=== PATIENT | female | born 1990 | race Caucasian/White ===

== ENCOUNTER 2024-08-14 10:12 | Outpatient (CLI) | payer BC ==
[2024-08-14 10:42] LABS: #Basophils 0.05 10x3/uL (0.0-0.2); #Eosinophils 0.58 10x3/uL (0.0-0.5); #Monocytes 0.76 10x3/uL (0.0-1.1); #Neutrophils 5.05 10x3/uL (1.5-8.4); %Basophils 0.5 % (0.0-2.0); %Eosinophils 6.3 % (0.0-6.0); %Monocytes 8.2 % (0.0-10.0); %Neutrophils 54.7 % (40.0-75.0); Hematocrit 36.1 % (34.9-44.5); Hemoglobin 11.1 g/dL (12.0-15.5); Mean Corpuscular HGB CONC 30.7 g/dL (32.0-36.0); Mean Corpuscular Hemoglobin 25.9 pg (27.0-33.0); Mean Corpuscular Volume 84.3 fL (81.6-98.3); Mean Platelet Volume 9.3 fL (7.4-10.4); Platelet Count 293 10x3/uL (150-450); RBC Distribution Width 13.9 % (11.5-14.5); Red Blood Cell (RBC) Count 4.28 10x6/uL (3.90-5.03); White Blood Cell (WBC) Count 9.2 10x3/uL (3.5-10.5)
[2024-08-14 10:56] LABS: Anion Gap 14 mmol/L (10-20); BUN (Urea Nitrogen) 13 mg/dL (7.0-18.7); Calc. Creatinine Clearance 0 mL/min (70-130); Calcium 9.2 mg/dL (7.8-10.44); Carbon Dioxide 25 mmol/L (22-29); Chloride 105 mmol/L (98-107); Estimated GFR 101; Glucose 85 mg/dL (70-105); Sodium 140 mmol/L (136-145)
== END 2024-08-14 10:13 | disposition home or self-care (01) ==
LOC: CSHLAB 10:12
PROVIDERS: ATTEND Specialist
DX: Z01.818 Encounter for other preprocedural examination (principal); C50.911 Malignant neoplasm of unspecified site of right female breast
CPT/HCPCS: 71046; 80048; 85025

== ENCOUNTER 2024-08-17 10:19 | Day surgery (SDC) | payer BC ==
[2024-08-14 10:30] VITALS: BMI 31.1
[2024-08-17] MEDS ORDERED: CEFAZOLIN 2 GM VIAL ONE (10:55)
[2024-08-17] MEDS ORDERED: Bupivacaine/Epinephrine 0.25% 30 ML VIAL ONE (10:55)
[2024-08-17] MEDS ORDERED: Scopolamine 1 mg/72 hour Patch ONE (12:01)
[2024-08-17] MEDS ORDERED: Midazolam HCl 2 mg/2 ml Vial ONE (12:09)
[2024-08-17] MEDS ORDERED: Ketorolac Tromethamine 30 MG (1 mL) VIAL ONE (12:10)
[2024-08-17] MEDS ORDERED: Acetaminophen 500 MG TAB ONE (12:10)
[2024-08-17] MEDS ORDERED: PROPOFOL 20 ML ONE (12:17)
[2024-08-17] MEDS ORDERED: Lidocaine 1% PF 5 ML VIAL ONE (12:17)
[2024-08-17] MEDS ORDERED: fentaNYL 50 mcg/mL 1 mL Vial ONE (12:17)
[2024-08-17] MEDS ORDERED: Dexamethasone 20 MG/5 ML VIAL ONE (12:28)
[2024-08-17] MEDS ORDERED: PHENYLEPHRINE-NS 100 MCG/ML 10 ML SYRINGE ONE (12:28)
[2024-08-17] MEDS ORDERED: Ondansetron PF 4 MG/2 ML Vial ONE (12:50)
[2024-08-17] MEDS ORDERED: Ibuprofen 200 MG TAB ONE (13:54)
== END 2024-08-17 14:15 | disposition home or self-care (01) ==
LOC: CSHSDC 10:19
PROVIDERS: ATTEND Specialist
PROC: 0JH63WZ Insertion of Totally Implantable Vascular Access Device into Chest Subcutaneous Tissue and Fascia, Percutaneous Approach (ICD-10-PCS; principal; 2024-08-17)
DX: C50.911 Malignant neoplasm of unspecified site of right female breast (principal); F41.9 Anxiety disorder, unspecified; F32.A Depression, unspecified; G47.33 Obstructive sleep apnea (adult) (pediatric); Z90.13 Acquired absence of bilateral breasts and nipples; Z90.49 Acquired absence of other specified parts of digestive tract; Z87.59 Personal history of other complications of pregnancy, childbirth and the puerperium; Z98.51 Tubal ligation status; Z88.5 Allergy status to narcotic agent; Z88.8 Allergy status to other drugs, medicaments and biological substances; Z79.1 Long term (current) use of non-steroidal anti-inflammatories (NSAID); Z79.899 Other long term (current) drug therapy
CPT/HCPCS: 71045; C1788; J1100; J1642; J1885; J2250; J2405; J2704; J3010